=== PATIENT | male | born 1995 | race Caucasian/White ===

== ENCOUNTER 2017-02-01 20:54 | Emergency (ER) | payer SELFPAY ==
[~2017-02-01] VITALS: Ht 162.6 cm; Wt 49.0 kg
[2017-02-01 20:55] VITALS: BP 129/79; PULSE 87; RESP 18; TEMP 98.3; O2SAT 98
--- NOTE | 2017-02-01 21:31 | PD ---
Physical Exam Date Seen by Provider: February 01, 2017 Time Seen by Provider: 21:29 Narrative 21 yo male that presents to the ED for evaluation of groin pain, swelling and discoloration. He was seen at [facility] for this and given antibiotic and ibuprofen. Symptoms not better. Came here for evaluation. Pain is 6/10. No BM issues. No chest pain. Pain does radiate to the flank area. Vitals sign stable. Patient awaiting bed placement. Data Data Last Documented VS Vital Signs Date Time Temp Pulse Resp B/P Pulse Ox O2 Delivery O2 Flow Rate FiO2 02/01/17 21:28 16 02/01/17 20:55 98.3 87 129/79 98 Room Air MDM Medical Record Reviewed: Yes Supervised Visit with ADRIANA: No Scripts No Active Prescriptions or Reported Meds Mukul Denson February 01, 2017 21:31
--- NOTE | 2017-02-01 22:43 | PD ---
HPI . Right testicular pain Chief Complaint: Complaint Time Seen by Provider: 22:27 Travel History International Travel<30 days: No Contact w/Intl Traveler<30days: No Traveled to known affect area: No History of Present Illness HPI Patient presents with a chief complaint of right testicular pain. Onset has been about 5 days. It is a sharp continuous pain. He rates it as 7/10. Patient states that he has been seen outside facility twice and has had a CT of his abdomen and pelvis and an ultrasound of his testicles. He states that his diagnosis is "infection in his testicle.. He was given an antibiotic shot and was discharged on doxycycline and hydrocodone. He states that he is here tonight for a second opinion. He is concerned that he has a hernia. He denies any associated penile discharge. He has not been running a fever. [facility] Past Medical History Medical History: Denies Significant Hx Diminished Hearing: No Tetanus Vaccination: < 5 Years Influenza Vaccination: No Past Surgical History Surgical History: No Previous Surgery Social History Alcohol Use: No Tobacco Use: Yes (1/3PPD) Substance Use: No Allergies-Medications (Allergen,Severity, Reaction): Coded Allergies: Flexeril (Verified Allergy, Intermediate, HALLUCINATIONS, 02/01/17) Motrin (Verified Allergy, Intermediate, RASH, 02/01/17) Reported Meds & Prescriptions Reported Meds & Active Scripts Active No Active Prescriptions or Reported Medications Review of Systems Except as stated in HPI: all other systems reviewed are Neg Genitourinary: Positive: Flank Pain (right testicular pain), Other Physical Exam Narrative GENERAL: Awake and alert and in no acute distress. SKIN: Warm and dry. HEAD: Atraumatic. Normocephalic. EYES: Pupils equal and round. NECK: Trachea midline. CARDIOVASCULAR: Regular rate and rhythm. RESPIRATORY: No accessory muscle use. : He has tenderness and swelling of the right spermatic cord and epididymis. The testicle does not appear swollen. There is no hernia. MUSCULOSKELETAL: No obvious deformities. No edema. NEUROLOGICAL: Awake and alert. No obvious cranial nerve deficits. Motor grossly within normal limits. Normal speech. PSYCHIATRIC: Appropriate mood and affect; insight and judgment normal. Data Data Last Documented VS Vital Signs Date Time Temp Pulse Resp B/P Pulse Ox O2 Delivery O2 Flow Rate FiO2 02/01/17 21:28 16 02/01/17 20:55 98.3 87 129/79 98 Room Air Orders Gc And Chlamydia Pcr (02/01/17 21:42) MDM Medical Decision Making Medical Screen Exam Complete: Yes Emergency Medical Condition: Yes Differential Diagnosis Differential diagnosis of testicular pain includes but is not limited to hernia , torsion, epididymoorchitis, groin strain. Narrative Course Patient presents with right testicular pain. He has been evaluated at an outside facility and diagnosed with epididymitis. I agree with that diagnosis. He has already had an ultrasound at the outside facility. The patient has been offered a repeat ultrasound tonight but declines. He is comfortable with the clinical assessment of epididymitis. Diagnosis Primary Impression: Acute epididymitis Referrals: Kleber Russell DO 1 week Patient Instructions: General Instructions, Epididymo-Orchitis (ED) Departure Forms: Tests/Procedures Scripts No Active Prescriptions or Reported Meds Disposition: 01 DISCHARGE HOME Condition: Stable Linnette Frias MD February 01, 2017 22:43
== END 2017-02-01 22:51 | disposition home or self-care (01) ==
LOC: NEPD 20:54
DX: N45.1 Epididymitis (principal); F17.200 Nicotine dependence, unspecified, uncomplicated
CPT/HCPCS: 99282